=== PATIENT | female | born 1945 | race Caucasian/White ===

== ENCOUNTER 2021-10-05 08:31 | Emergency (ER) | payer MEDICARE, OTHER ==
--- NOTE | 2021-10-05 09:09 | EDM.PDOC ---
ED HPI GENERAL MEDICAL PROBLEM - General Chief Complaint: General Time Seen by Provider: 10/05/21 08:35 Source of Information: Reports: Patient, RN History Limitations: Reports: No Limitations - History of Present Illness INITIAL COMMENTS - FREE TEXT/NARRATIVE: Pt. presents to ER with complaints of head and hand pain post fall. Pt. states that she has some leg cramps early this AM and either slipped on a rug or had a syncopal episode and fell to the floor while rubbing her legs. She states that her found her on the floor, complaining of posterior head and L hand pain. She complains of some headache. Denies any blurred vision. No numbness/tingling in extremities. No problems with speech or ambulation; she walked into the ER without any difficulty. Pt. denies any chest pain, shortness of breath, lightheadedness, palpitations, nausea, vomiting, or diarrhea pre or post fall. No racing heart. Denies any fever or chills. No diaphoresis. Denies any ill contacts. Onset: Today Onset Date: 10/05/21 Location: Reports: Head, Generalized Associated Symptoms: Denies: Chest Pain, Cough, Diaphoresis, Fever/Chills, Headaches, Nausea/Vomiting, Seizure, Shortness of Breath Left Hand Pain Score (Numeric/FACES): 2 - Related Data Allergies Allergy/AdvReac Type Severity Reaction Status Date / Time levofloxacin [From Levaquin] Allergy Muscle Verified 10/05/21 09:22 Aches Home Meds: Home Meds Acetaminophen [Tylenol Extra Strength] 1 tab PO Q4H PRN 08/30/14 [History] Aspirin [Halfprin] 1 tab PO DAILY 08/30/14 [History] Calcium Carbonate/Vitamin D3 [Caltrate 600 + D Tablet] 1 tab PO DAILY 08/30/14 [History] Lisinopril [Zestril] 1 tab PO DAILY 08/30/14 [History] Omeprazole [Prilosec] 1 tab PO DAILY PRN 08/30/14 [History] atenoloL [Atenolol] 1 tab PO DAILY 08/30/14 [History] hydroCHLOROthiazide [Hydrochlorothiazide] 0.5 tab PO DAILY 08/30/14 [History] Ibuprofen 400 mg PO Q6H PRN 09/01/14 [History] Multivitamin [Multi Vitamin Daily] 1 tab PO DAILY 09/01/14 [History] Alendronate Sodium [Fosamax] 70 mg PO WEEKLY 08/18/19 [History] polyethylene glycoL 3350 [MiraLAX] 1 capful PO DAILY 08/18/19 [History] Past Medical History HEENT History: Reports: Other (See Below) Other HEENT History: wears glasses Cardiovascular History: Reports: High Cholesterol, Hypertension, Other (See Below) Other Cardiovascular History: palpitations; valvular heart disease Respiratory History: Reports: Other (See Below) Other Respiratory History: cough Gastrointestinal History: Reports: Chronic Constipation, Colon Polyp, GERD, Other (See Below) Other Gastrointestinal History: heartburn. generalized abd pain. bloating Musculoskeletal History: Reports: Osteoarthritis, Osteoporosis, Other (See Below) Other Musculoskeletal History: carpal tunnel right. erosive osteoarthritis of both hands. chronic pain right knee Neurological History: Reports: Other (See Below) Other Neuro History: dizzy Endocrine/Metabolic History: Reports: Other (See Below) Other Endocrine/Metabolic History: chronic fatigue. hyperglycemia Other Immunologic History: enlarged lymph nodes Oncologic (Cancer) History: Reports: Basal Cell Carcinoma Dermatologic History: Reports: Other (See Below) Other Dermatologic History: pigmented skin lesions - Past Surgical History Cardiovascular Surgical History: Reports: None GI Surgical History: Reports: Colonoscopy, EGD Female Surgical History: Reports: None Musculoskeletal Surgical History: Reports: None Social & Family History - Caffeine Use Caffeine Use: Reports: Coffee ED ROS GENERAL - Review of Systems Review Of Systems: See Below Constitutional: Reports: No Symptoms HEENT: Reports: Other Respiratory: Reports: No Symptoms Cardiovascular: Reports: Other (see HPI) Endocrine: Reports: No Symptoms GI/Abdominal: Reports: No Symptoms : Reports: No Symptoms Musculoskeletal: Reports: Joint Pain (R hand pain (2nd MCP)) Skin: Reports: No Symptoms Neurological: Reports: Headache Psychiatric: Reports: No Symptoms Hematologic/Lymphatic: Reports: No Symptoms Immunologic: Reports: No Symptoms ED EXAM, GENERAL - Physical Exam Exam: See Below Exam Limited By: No Limitations General Appearance: Alert, WD/WN, No Apparent Distress Eye Exam: Bilateral Eye: EOMI, PERRL Throat/Mouth: Normal Inspection, Normal Lips, Normal Teeth, Normal Oropharynx, Normal Voice, No Airway Compromise Head: Normocephalic, Other (small hematoma to occiput) Neck: Normal Inspection, Supple, Non-Tender Respiratory/Chest: No Respiratory Distress, Lungs Clear, Normal Breath Sounds, No Accessory Muscle Use, Chest Non-Tender Cardiovascular: Normal Peripheral Pulses, Regular Rate, Rhythm, No Edema, No JVD, No Murmur Peripheral Pulses: 4+: Radial (R) GI/Abdominal: Soft, Non-Tender, No Distention, No Mass (Female) Exam: Deferred Rectal (Female) Exam: Deferred Extremities: No Pedal Edema, Normal Capillary Refill, Joint Swelling, Limited Range of Motion, Other (edema, tenderness on palpation of the 2nd MCP joint. No deformity.) Neurological: Alert, Oriented, CN II-XII Intact, Normal Cognition, Normal Gait, Normal Reflexes, No Motor/Sensory Deficits Psychiatric: Normal Affect, Normal Mood Course - Vital Signs Last Recorded V/S: Last Vital Signs Temp 36.7 C 10/05/21 08:35 Pulse 64 10/05/21 08:35 Resp 18 10/05/21 08:35 BP 172/73 H 10/05/21 08:35 Pulse Ox 99 10/05/21 08:35 - Orders/Labs/Meds Orders: Active Orders 24 hr Category Date Time Status Head wo Cont [CT] Stat Exams 10/05/21 08:50 Ordered Labs: Laboratory Tests 10/05/21 10/05/21 Range/Units 09:07 09:07 WBC 6.9 (4.0-10.0) x10^3/uL RBC 3.95 L (4.00-5.50) x10^6/uL Hgb 12.0 (12.0-16.0) g/dL Hct 35.0 (33.0-47.0) % MCV 88.6 (78.0-93.0) fL MCH 30.4 (26.0-32.0) pg MCHC 34.3 (32.0-36.0) g/dL RDW Coeff of Jeff 12.2 (10.0-15.0) % Plt Count 200 (130-400) x10^3/uL Immature Gran % (Auto) 0.10 (0.00-0.43) % Neut % (Auto) 74.8 (50.0-80.0) % Lymph % (Auto) 15.3 L (25.0-50.0) % J[place]uld % (Auto) 7.8 (2.0-11.0) % Eos % (Auto) 1.7 (0.0-4.0) % Baso % (Auto) 0.3 (0.2-1.2) % Neut # (Auto) 5.1 (1.8-7.7) x10^3/uL Lymph # (Auto) 1.1 (1.0-4.8) x10^3/uL Jerauld # (Auto) 0.5 (0.0-0.8) x10^3/uL Eos # (Auto) 0.1 (0.0-0.5) x10^3/uL Baso # (Auto) 0.0 (0.0-0.2) x10^3/uL Immature Gran # (Auto) 0.01 (0.00-0.07) x10^3/uL Sodium 134 L (136-145) mmol/L Potassium 4.7 (3.5-5.1) mmol/L Chloride 99 (98-107) mmol/L Carbon Dioxide 28 (21-32) mmol/L Anion Gap 11.7 (5-15) mmol/L BUN 22 H (7-18) mg/dL Creatinine 1.0 (0.55-1.02) mg/dL Est Cr Clr Drug Dosing TNP Estimated GFR (MDRD) 54 Glucose 116 H (70-99) mg/dL Calcium 9.0 (8.5-10.1) mg/dL Corrected Calcium 9.3 (8.5-10.1) mg/dL Phosphorus 4.1 (2.6-4.7) mg/dL Magnesium 1.8 (1.8-2.4) mg/dL Total Bilirubin 0.3 (0.2-1.0) mg/dL AST 31 (15-37) U/L ALT 24 (14-59) U/L Alkaline Phosphatase 41 L (46-116) U/L Troponin I High Sens 8 (<=51) ng/L Total Protein 7.1 (6.4-8.2) g/dL Albumin 3.6 (3.4-5.0) g/dL Globulin 3.5 Albumin/Globulin Ratio 1.03 - Radiology Interpretation Free Text/Narrative:: Possible fracture of the L hand at MCP joint. CT brain without contrast negative for acute pathology. Departure - Departure Time of Disposition: 10:40 Disposition: Home, Self-Care 01 Clinical Impression: Closed head injury, Hand fracture - Discharge Information Instructions: Head Injury, Adult, [id number], Metacarpal Fracture, [id number] Referrals: Hui Michael MD [Primary Care Provider] - Forms: ED Department Discharge Additional Instructions: Aside from the hand fracture, there were no other abnormal findings noted. Keep splint on. Follow-up in clinic in 1 week for repeat x-rays, probable placement of a cast. Return to ER if you have worsening headache, confusion, chest pain, shortness of breath. Sepsis Event Note (ED) - Focused Exam Vital Signs: Vital Signs Temp Pulse Resp BP Pulse Ox 10/05/21 08:35 36.7 C 64 18 172/73 H 99 - Problem List Review Problem List Initiated/Reviewed/Updated: Yes - My Orders Last 24 Hours: My Active Orders 10/05/21 08:50 Head wo Cont [CT] Stat - Assessment/Plan Last 24 Hours: My Active Orders 10/05/21 08:50 Head wo Cont [CT] Stat Plan: Aside from the hand fracture, there were no other abnormal findings noted. Keep splint on. Follow-up in clinic in 1 week for repeat x-rays, probable placement of a cast. Return to ER if you have worsening headache, confusion, chest pain, shortness of breath.
[2021-10-05 09:19] VITALS: BP 172/73; PULSE 64
[2021-10-05 09:32] LABS: ANION GAP 11.7 mmol/L (5-15); CHLORIDE,CL 99 mmol/L (98-107); SODIUM,NA 134 mmol/L (136-145)
--- NOTE | 2021-10-05 10:09 | CR ---
[id number] RAD/RAD Hand Left 3V Exam: RAD Hand Left 3V Indication:HAND PAIN,POST FALL,ATTN: 2ND MCP JOINT. Comparison: None. Discussion/Impression: Advanced changes of osteoarthritis throughout the hand and wrist, including erosive osteoarthritis at the 2nd through 5th interphalangeal articulations. Lateral view demonstrates an obliquely orientated acute fracture of the metacarpal. This is not as well-visualized on the other views. If there is pain at the 2nd digit, fracture is likely within the 2nd metacarpal. No dislocation. Gaurav Cortes MD 10/05/21 [id number] Thank you for allowing us to participate in the care of your patient.
--- NOTE | 2021-10-05 11:14 | CT ---
[id number] CT/CT Head WO IV EXAM: CT Head WO IV CLINICAL DATA: FALL, STRUCK HEAD, LOC,HEADACHE. COMPARISON STUDY: None FINDINGS: No intracranial hemorrhage, extra-axial fluid collection, mass, or acute ischemia. No hydrocephalus. Multiple moderate changes of chronic small vessel disease in the cerebral hemispheres. Calvarium intact. Paranasal sinuses and mastoid air cells are clear. IMPRESSION: No acute intracranial findings. Gaurav Cortes MD 10/05/21 1112 Thank you for allowing us to participate in the care of your patient.
== END 2021-10-05 10:41 | disposition home or self-care (01) ==
LOC: VM.ED 08:31
DX: S62.301A Unspecified fracture of second metacarpal bone, left hand, initial encounter for closed fracture (principal); S09.90XA Unspecified injury of head, initial encounter; E78.00 Pure hypercholesterolemia, unspecified; I10 Essential (primary) hypertension; K21.9 Gastro-esophageal reflux disease without esophagitis; Z88.1 Allergy status to other antibiotic agents; Z79.82 Long term (current) use of aspirin; Z79.899 Other long term (current) drug therapy; W18.39XA Other fall on same level, initial encounter
CPT/HCPCS: 29125; 36415; 70450; 73130-LT; 80053; 83735; 84100; 84484; 85025; 93005; 99284; 99284-25

== ENCOUNTER 2025-08-24 11:40 | Day surgery (SDC) | payer MEDICARE, OTHER ==
[~2025-08-24 11:40] MED LIST: Propofol 200 MG/20 ML SDV ONE; fentaNYL 100 MCG/2 ML SDV ONE
[2025-08-24] MEDS: Lactated Ringers 1,000 ML IV SCH (11:59)
[2025-08-24] MEDS ORDERED: Propofol 200 MG/20 ML SDV ONE (15:08)
[2025-08-24 15:54] VITALS: BP 159/75; PULSE 71
== END 2025-08-24 16:13 | disposition home or self-care (01) ==
LOC: VM.SDS 11:40
PROVIDERS: ATTEND Family Medicine
DX: K57.31 Diverticulosis of large intestine without perforation or abscess with bleeding (principal); K64.8 Other hemorrhoids; I10 Essential (primary) hypertension; E78.5 Hyperlipidemia, unspecified; K21.9 Gastro-esophageal reflux disease without esophagitis; Z88.8 Allergy status to other drugs, medicaments and biological substances; Z79.82 Long term (current) use of aspirin; Z79.899 Other long term (current) drug therapy; Z87.891 Personal history of nicotine dependence; Z86.0101 Personal history of adenomatous and serrated colon polyps
CPT/HCPCS: 45378; J2704; J7120; 00811; 99100; J3010